=== PATIENT | female | born 1930 | race American Indian/Alaskan Native ===

== ENCOUNTER 2020-08-18 05:32 | Observation (INO) | payer MEDICARE ==
[~2020-08-18] VITALS: Ht 137.2 cm; Wt 89.0 kg
[~2020-08-18 05:32] MED LIST: ASPI-1265 PO; COMMODE; CYAN100087 PO; FENO145T38 PO; GINK40CA PO; LEVO100T46 PO; LISI20TA28 PO; NORCO10T PO; OMEG1CAP13; VITA100T3 PO; VITC500T PO
[2020-08-18 07:10] LABS: BASOPHILS # (AUTO) 0.1 X10'3 (0-0.2); BASOPHILS % (AUTO) 0.6 % (0-1); EOSINOPHILS # (AUTO) 0.1 X10'3 (0-0.9); EOSINOPHILS % (AUTO) 0.7 % (0-6); HEMATOCRIT 37.3 % (35.0-45.0); HEMOGLOBIN 12.3 g/dl (12.0-16.0); LYMPHOCYTES # (AUTO) 1.5 X10'3 (1.1-4.8); LYMPHOCYTES % (AUTO) 15.6 % (21-51); MEAN CORPUSCULAR HEMOGLOBIN 30.6 PG (27.0-31.0); MEAN CORPUSCULAR VOLUME 92.8 FL (78-98); MEAN PLATELET VOLUME 10.5 FL (7.4-10.4); MONOCYTES # (AUTO) 0.6 X10'3 (0-0.9); MONOCYTES % (AUTO) 6.2 % (2-12); NEUTROPHILS # (AUTO) 7.3 X10'3 (1.8-7.7); NEUTROPHILS % (AUTO) 76.9 % (42-75); PLATELET COUNT 237 X10'3 (140-440); RED BLOOD COUNT 4.02 X10'6 (4.20-5.60); RED CELL DISTRIBUTION WIDTH 14.4 % (11.5-14.5); WHITE BLOOD COUNT 9.4 X10'3 (4.5-11.0)
[2020-08-18 07:24] LABS: ALBUMIN 3.4 G/DL (3.4-5.0); ALBUMIN/GLOBULIN RATIO 0.8 (1.1-1.5); ALKALINE PHOSPHATASE 94 IU/L (46-116); ANION GAP 9 (8-16); BILIRUBIN,TOTAL 0.2 MG/DL (0.1-1.0); BLOOD UREA NITROGEN 24 MG/DL (7-18); CALCIUM 8.8 MG/DL (8.5-10.1); CHLORIDE 107 MMOL/L (99-107); CREATININE 0.89 MG/DL (0.40-0.90); GLUCOSE 174 MG/DL (70-104); POTASSIUM 4.1 MMOL/L (3.5-5.1); SODIUM 142 MMOL/L (135-145); TOTAL CARBON DIOXIDE 26.4 MMOL/L (24-32); TOTAL PROTEIN 7.5 G/DL (6.4-8.2); eGFR 60 ML/MIN
[2020-08-18 07:38] LABS: ALANINE AMINOTRANSFERASE < 6 U/L (12-78); ASPARTATE AMINO TRANSFERASE 0 U/L (10-37)
--- NOTE | 2020-08-18 08:15 | NUR ---
To CT at this time via wheelchair, no signs of distress noted, patient assisted to bathroom via wheelchair prior to depature, tolerated transfer to and from wheelchair well, denied dizziness.
--- NOTE | 2020-08-18 08:41 | NUR ---
PATIENT AMBULATED WITH SUPERVISOR INDUSTRIAL GARMENT APPROXIMATELY 50 FEET, PATIENT BECAME VERY DIZZY AND NAUSEOUS UPON RETURNING TO ROOM. MD AWARE. PATIENT REPOSITIONED FOR COMFORT.
[2020-08-18] MEDS ORDERED: meclizine 12.5mg tablet PO ONE ×3 (08:45→14:30)
--- NOTE | 2020-08-18 09:16 | NUR ---
Daughter Sheela [phone]
--- NOTE | 2020-08-18 09:17 | NUR ---
Patient sleeping, no signs of distress noted.
[2020-08-18] MEDS ORDERED: ondansetron/PF 4mg/2ml inj IV ONE (10:05)
--- NOTE | 2020-08-18 12:10 | NUR ---
NEURO TELE IN PROCESS AT THIS TIME, DAUGHTER AT BEDSIDE. PATIENT CALM, NO SIGNS OF DISTRESS NOTED.
[2020-08-18] MEDS ORDERED: NITR0.4T48 SL (12:27)
[2020-08-18] MEDS ORDERED: CHOL100017 PO (12:27)
[2020-08-18] MEDS ORDERED: LEVO75TA7 PO (12:28)
[2020-08-18] MEDS ORDERED: iohexol 350MG/ML 100ml bottle IV ONE (12:32)
[2020-08-18 12:55] LABS: PLATELET ESTIMATE NORMAL
[2020-08-18 12:56] LABS: LARGE PLATELETS FEW
--- NOTE | 2020-08-18 13:21 | NUR ---
DR FREY, HOSPITALIST, AT BEDSIDE
[2020-08-18] MEDS ORDERED: HYDROcodone/acetaminophen 10/325mg tab PO PRN (13:50)
[2020-08-18] MEDS ORDERED: dextrose ORAL solution 15 GM/59 ML bottle PO PRN ×2 (13:50)
[2020-08-18] MEDS ORDERED: magnesium 4gm in 100ml NS 100 ML IV PRN (13:50)
[2020-08-18] MEDS ORDERED: potassium Cl 20 mEq SR tablet PO PRN ×2 (13:50)
[2020-08-18] MEDS ORDERED: docusate sod 100mg capsule PO PRN (13:50)
[2020-08-18] MEDS ORDERED: ondansetron/PF 4mg/2ml inj IV PRN (13:50)
[2020-08-18] MEDS ORDERED: dextrose 50%-water 50ml dispensing syringe IV PRN ×2 (13:50)
[2020-08-18] MEDS ORDERED: acetaminophen 325mg tablet PO PRN ×2 (13:50)
[2020-08-18] MEDS ORDERED: glucagon, human recombinant 1mg kit SUBCUT PRN (13:50)
[2020-08-18] MEDS ORDERED: potassium Cl 40MEQ/1/2NS 520ml 520 ML IV PRN ×2 (13:50)
[2020-08-18] MEDS ORDERED: insulin Lispro (HumaLOG) vial - multi-dose SQ SCH (13:50)
[2020-08-18] MEDS ORDERED: HYDROcodone/acetaminophen 5mg/325mg tablet PO PRN (13:50)
[2020-08-18] MEDS ORDERED: mag hydrox/Alum hydrox/simeth 30ml oral suspension PO PRN (13:50)
[2020-08-18] MEDS ORDERED: MESSAGE TO PHARMACY PO ONE (13:50)
[2020-08-18] MEDS ORDERED: magnesium 2GM in 50ml NS 50 ML IV PRN (13:50)
[2020-08-18] MEDS ORDERED: aspirin 81mg tablet.DR PO ONE (13:55)
[2020-08-18 14:16] LABS: HEMOGLOBIN A1C 6.3 % (4.5-6.2)
[2020-08-18] MEDS ORDERED: meclizine 12.5mg tablet PO PRN (14:30)
--- NOTE | 2020-08-18 14:57 | NUR ---
PATIENT ASLEEP, NO SIGNS OF DISTRESS NOTED, EASILY AROUSED VIA VERBAL STIMULI.
--- NOTE | 2020-08-18 15:09 | NUR ---
Patient in room ORTHO 4018. I have received report from CATY SMYTH FROM ER and had the opportunity to ask questions and assume patient care.
[2020-08-18 15:43] VITALS: BP 129/58
--- NOTE | 2020-08-18 18:41 | NUR ---
Problems reprioritized. Patient report given, questions answered & plan of care reviewed with CATY MCNEILL & CATY LANDRUM.
[2020-08-18] MEDS: K and/or MAG REPLACEMENT MC SCH (19:57)
[2020-08-18] MEDS ORDERED: enoxaparin 40mg/0.4ml syringe SQ SCH (20:00)
[2020-08-18] MEDS ORDERED: insulin glargine (Lantus) pen - multi-dose SQ SCH (21:00)
[2020-08-18 22:00] VITALS: BP 158/59
[2020-08-19 02:00] VITALS: BP 154/69
[2020-08-19 05:35] VITALS: BP_SYST 132; BP_SYST 152; BP_SYST 164; BP_DIAS 41; BP_DIAS 67; BP_DIAS 74
[2020-08-19 05:48] LABS: BASOPHILS # (AUTO) 0.1 X10'3 (0-0.2); WHITE BLOOD COUNT 8.5 X10'3 (4.5-11.0)
[2020-08-19 05:50] LABS: EOSINOPHILS # (AUTO) 0.2 X10'3 (0-0.9); EOSINOPHILS % (AUTO) 2.8 % (0-6); HEMATOCRIT 36.8 % (35.0-45.0); LYMPHOCYTES % (AUTO) 35.2 % (21-51); MEAN CORPUSCULAR HEMOGLOBIN 30.4 PG (27.0-31.0); MEAN CORPUSCULAR HGB CONC 32.7 g/dL (33.0-36.5); MEAN PLATELET VOLUME 10.2 FL (7.4-10.4); MONOCYTES % (AUTO) 11.5 % (2-12); NEUTROPHILS # (AUTO) 4.2 X10'3 (1.8-7.7); NEUTROPHILS % (AUTO) 49.5 % (42-75); PLATELET COUNT 225 X10'3 (140-440); RED BLOOD COUNT 3.95 X10'6 (4.20-5.60); RED CELL DISTRIBUTION WIDTH 14.1 % (11.5-14.5)
[2020-08-19 06:02] LABS: ALANINE AMINOTRANSFERASE 13 U/L (12-78); ALBUMIN 2.9 G/DL (3.4-5.0); ALBUMIN/GLOBULIN RATIO 0.8 (1.1-1.5); ALKALINE PHOSPHATASE 72 IU/L (46-116); ANION GAP 10 (8-16); ASPARTATE AMINO TRANSFERASE 15 U/L (10-37); BILIRUBIN,TOTAL 0.4 MG/DL (0.1-1.0); BLOOD UREA NITROGEN 17 MG/DL (7-18); BUN/CREATININE RATIO 19.8 (6.6-38.0); CALCIUM 8.5 MG/DL (8.5-10.1); CHLORIDE 109 MMOL/L (99-107); CHOL/HDL RATIO 5.4 (0.00-4.99); CHOLESTEROL 217 MG/DL (0-200); CREATININE 0.86 MG/DL (0.40-0.90); GLUCOSE 113 MG/DL (70-104); HDL CHOLESTEROL 40 MG/DL (35-60); LDL CHOLESTEROL 132 MG/DL (50-100); MAGNESIUM 1.9 MG/DL (1.5-2.4); POTASSIUM 4.2 MMOL/L (3.5-5.1); SODIUM 144 MMOL/L (135-145); TOTAL CARBON DIOXIDE 24.6 MMOL/L (24-32); TOTAL PROTEIN 6.7 G/DL (6.4-8.2); TRIGLYCERIDES 390 MG/DL (20-135); eGFR 62 ML/MIN
[2020-08-19] MEDS: K and/or MAG REPLACEMENT MC SCH (06:41)
--- NOTE | 2020-08-19 06:42 | NUR ---
Patient in room ORTHO 4018. I have received report from holden oconnor and had the opportunity to ask questions and assume patient care.
[2020-08-19 08:00] VITALS: BP_SYST 127; BP_SYST 167; BP_SYST 171; BP_DIAS 47; BP_DIAS 69; BP_DIAS 76
[2020-08-19] MEDS ORDERED: levoTHYROXINE 75mcg tablet PO SCH (08:00)
[2020-08-19] MEDS ORDERED: pneumococcal 23-VAL P-sac vacc 25 mcg/0.5ml vial IMVAC ONE (08:00)
[2020-08-19] MEDS ORDERED: aspirin 81mg tablet.DR PO SCH (08:00)
[2020-08-19 10:37] VITALS: BP 157/67
--- NOTE | 2020-08-19 11:11 | NUR ---
DM consult: Pt A1c 6.3%. No DM education warranted at this time given well controlled for geriatric age. Addendum: 08/19/20 at [address] Amended: Links added. Addendum: 08/19/20 at [address] RD agrees w/ above internal audit manager note.
[2020-08-19] MEDS ORDERED: meclizine 12.5mg tablet PO PRN (11:20)
[2020-08-19] MEDS ORDERED: meclizine 12.5mg tablet PO ONE (11:20)
[2020-08-19] MEDS ORDERED: ATOR20TA66 PO (13:18)
[2020-08-19] MEDS ORDERED: OMEG1CAP PO (13:18)
[2020-08-19] MEDS ORDERED: MECL-226 PO (13:18)
[2020-08-19] MEDS ORDERED: ASPI-1071 PO (13:18)
[2020-08-19 14:57] VITALS: BP 132/55
--- NOTE | 2020-08-19 16:44 | NUR ---
PT DISCHARGED IN STABLE CONDITION. LEFT FACILITY IN PRIVATE VEHICLE WITH DAUGHTER. IV DC CANULA INTACT. ALL BELONGINGS IN HAND. FOLLOW UP INSTRUCTIONS GIVEN, ALL QUESTIONS ANSWERED. Addendum: 08/19/20 at 1645 by Tania Byrne RN Amended: Links added.
== END 2020-08-19 16:30 | disposition home health service (06) ==
LOC: ER 05:33 → ED HOLD 13:47 → ORTHO 4S 15:30
PROVIDERS: ADMIT Family Medicine; ATTEND Family Medicine
DX: R42 Dizziness and giddiness (principal); I63.9 Cerebral infarction, unspecified; E03.9 Hypothyroidism, unspecified; I10 Essential (primary) hypertension; E11.42 Type 2 diabetes mellitus with diabetic polyneuropathy; E78.5 Hyperlipidemia, unspecified; J44.9 Chronic obstructive pulmonary disease, unspecified; Z23 Encounter for immunization; Z96.653 Presence of artificial knee joint, bilateral; Z96.643 Presence of artificial hip joint, bilateral; Z90.49 Acquired absence of other specified parts of digestive tract; Z79.899 Other long term (current) drug therapy
CPT/HCPCS: 36415; 70450; 70496; 70498; 70551; 71045; 80053; 80061; 82948; 83036; 83735; 83880; 84443; 84484; 85008; 85025; 85651; 87081; 90732; 93005; 93306; 96372; 96374; 97161; 97530; 99285; G0009; G0378; J2405; J8597; Q9967; J1650; J1815